=== PATIENT | male | born 1960 | race African-American/Black ===

== ENCOUNTER 2024-02-23 20:23 | Emergency (ER) | payer MEDICAID ==
[~2024-02-23] VITALS: Ht 193 cm; Wt 82.0 kg
[2024-02-23 20:26] VITALS: BP 102/62; PULSE 86; RESP 18; TEMP 97.6; O2SAT 100
== END 2024-02-23 23:41 | disposition home or self-care (01) ==
LOC: ER 20:23
DX: S01.01XA Laceration without foreign body of scalp, initial encounter (principal); F10.90 Alcohol use, unspecified, uncomplicated; M54.2 Cervicalgia; I10 Essential (primary) hypertension; J44.1 Chronic obstructive pulmonary disease with (acute) exacerbation; E11.9 Type 2 diabetes mellitus without complications; W18.30XA Fall on same level, unspecified, initial encounter; Y93.89 Activity, other specified; Y92.89 Other specified places as the place of occurrence of the external cause; Y99.8 Other external cause status; Y90.9 Presence of alcohol in blood, level not specified
CPT/HCPCS: 82962; 70450; 72125; 12002; 99284; Z7610 ×2